=== PATIENT | female | born 1970 | race Caucasian/White ===

== ENCOUNTER 2017-05-14 17:26 | Emergency (ER) | payer SELFPAY ==
[2017-05-14 17:31] VITALS: BP 121/69
[2017-05-14] MEDS ORDERED: CIPROFLOXACIN HCL/DEXAMETH OTIC DROP 7.5 ML AS ONE (17:49)
--- NOTE | 2017-05-14 17:50 | ER Document Report ---
HPI - HPI Patient complains to provider of: Left ear pain Onset: Last week Onset/Duration: Worse Quality of pain: Sharp Pain Level: 5 Context: Patient presents complaining of left ear pain for the past week. Patient states pain worsened 3 days ago and she noticed drainage from her left ear. Patient denies any known fever. Patient reports previous history of ear problems in the past although has never followed up with ear nose and throat doctor. Associated Symptoms: Earache. denies: Fever Exacerbated by: Denies Relieved by: Denies Similar symptoms previously: Yes Recently seen / treated by doctor: No - ROS ROS below otherwise negative: Yes Systems Reviewed and Negative: Yes All other systems reviewed and negative - EENT EENT: REPORTS: Ear Pain - NEURO Neurology: DENIES: Headache, Weakness - GASTROINTESTINAL Gastrointestinal: DENIES: Nausea, Patient vomiting - REPRODUCTIVE Reproductive: DENIES: : - MUSCULOSKELETAL Musculoskeletal: DENIES: Neck Pain - DERM Skin Color: Normal Skin Problems: None Past Medical History - General Information source: Patient - Social History Smoking Status: Current Every Day Smoker Frequency of alcohol use: None Drug Abuse: Marijuana Occupation: Housekeeping Family History: DM, Hyperlipidemia EENT Medical History: Reports: Eyes - Macular degeneration Renal/ Medical History: Denies: Hx Peritoneal Dialysis Past Surgical History: Reports: Hx Tubal Ligation - Immunizations Hx Diphtheria, Pertussis, Tetanus Vaccination: No Vertical Provider Document - CONSTITUTIONAL Agree With Documented VS: Yes Exam Limitations: No Limitations General Appearance: WD/WN, No Apparent Distress - INFECTION CONTROL TRAVEL OUTSIDE OF THE [place] IN LAST 30 DAYS: No - HEENT HEENT: Atraumatic, Normocephalic. negative: Pharyngeal Exudate, Pharyngeal Tenderness, Pharyngeal Erythema, Tympanic Membrane Red, Tympanic Membrane Bulging Notes: Tenderness with movement of left helix, patient with swelling in drainage to left external auditory canal. No mastoid tenderness or swelling. Left TM unable to be fully visualized - NECK Neck: Normal Inspection, Supple. negative: Lymphadenopathy-Left, Lymphadenopathy-Right - RESPIRATORY Respiratory: Breath Sounds Normal, No Respiratory Distress O2 Sat by Pulse Oximetry: 97 - CARDIOVASCULAR Cardiovascular: Regular Rate, Regular Rhythm - BACK Back: Normal Inspection - MUSCULOSKELETAL/EXTREMETIES Musculoskeletal/Extremeties: MAEW - NEURO Level of Consciousness: Awake, Alert, Appropriate Motor/Sensory: No Motor Deficit - DERM Integumentary: Warm, Dry, No Rash Course - Re-evaluation Re-evalutation: 05/14/17 18:23 Ear wick placed without difficulty and drops administered in the emergency department. - Vital Signs Vital signs: Temp Pulse Resp BP Pulse Ox 99.5 F 103 H 16 121/69 97 05/14/17 17:29 05/14/17 17:29 05/14/17 17:29 05/14/17 17:29 05/14/17 17:29 Discharge - Discharge Clinical Impression: Otitis externa Qualifiers: Otitis externa type: unspecified type Chronicity: unspecified Laterality: left Qualified Code(s): H60.92 - Unspecified otitis externa, left ear Condition: Stable Disposition: HOME, SELF-CARE Instructions: Use of Ear Drops ([facility]), Using Ear Drops with a Wick ([facility]), Oral Narcotic Medication ([facility]), Otitis Externa ([facility]) Additional Instructions: Return immediately for any new or worsening symptoms Followup with your primary care provider, call tomorrow to make a followup appointment Follow-up with an ear nose and throat doctor for further evaluation, call Wednesday for an appointment Ciprodex drops, instill 4 drops to left ear canal twice a day for 7 days. Referrals: [facility] [Provider Group] - Follow up as needed
[2017-05-14] MEDS ORDERED: HYDROCODONE/ACETAMINOPHEN 5-325 MG 6 TAB/DSPK PO PRN (17:52)
== END 2017-05-14 18:25 | disposition home or self-care (01) ==
LOC: ER 17:26
DX: H60.92 Unspecified otitis externa, left ear (principal); H92.02 Otalgia, left ear; F17.200 Nicotine dependence, unspecified, uncomplicated
CPT/HCPCS: 99282; J3490

== ENCOUNTER 2018-01-15 13:13 | Emergency (ER) | payer SELFPAY ==
[2018-01-15] MEDS ORDERED: ASPIRIN 81 MG TABLET, CHEWABLE PO ONE (14:21)
--- NOTE | 2018-01-15 14:22 | ER Document Report ---
ED Medical Screen (RME) - General Chief Complaint: Chest Pain Stated Complaint: CHEST PAIN Time Seen by Provider: 01/15/18 14:20 Notes: RAPID MEDICAL EVALUATION DISCLOSURE I have seen this patient as part of a Rapid Medical Evaluation and, if applicable, placed any initially appropriate orders. The patient will be seen and fully evaluated, including a full history and physical exam, by a provider ( in Main ED or Fast Track) when a room becomes available. 47-year-old female here with complaints of midsternal nonradiating chest pain shortness of breath ongoing since last night. The chest pain is worse with exertion. The chest pain is still present with rest however she cannot tell me if it improves. She also reports that she has not eaten much in the last 3 weeks "because I have an eating disorder". She has not tried anything for the symptoms except smoking marijuana which she last consumed 4 days ago. TRAVEL OUTSIDE OF THE [place] IN LAST 30 DAYS: No - Related Data Allergies/Adverse Reactions: No Known Allergies Allergy (Verified 01/15/18 13:15) Home Medications: no daily medications Past Medical History Renal/ Medical History: Denies: Hx Peritoneal Dialysis Past Surgical History: Reports: Hx Tubal Ligation - Immunizations Hx Diphtheria, Pertussis, Tetanus Vaccination: No Physical Exam - Vital signs Vitals: Temp Pulse Resp BP Pulse Ox 99.4 F 100 18 149/71 H 99 01/15/18 13:29 01/15/18 13:29 01/15/18 13:01/15/18 13:29 01/15/18 13:29 Course - Vital Signs Vital signs: Temp Pulse Resp BP Pulse Ox 99.4 F 100 18 149/71 H 99 01/15/18 13:29 01/15/18 13:29 01/15/18 13:29 01/15/18 13:29 01/15/18 13:29
[2018-01-15 14:58] LABS: ABSOLUTE LYMPHOCYTES (AUTO) 1.5 10^3/uL (0.5-4.7); ABSOLUTE MONOCYTES (AUTO) 0.6 10^3/uL (0.1-1.4); ABSOLUTE NEUT (AUTO) 6.8 10^3/uL (1.7-8.2); BASOPHILS % (AUTO) 0.3 % (0-2); EOSINOPHILS % (AUTO) 0.6 % (0-6); HEMATOCRIT 45.3 % (36.0-47.0); HEMOGLOBIN 15.2 g/dL (12.0-15.5); LYMPHOCYTES % (AUTO) 16.7 % (13-45); MEAN CORPUSCULAR HEMOGLOBIN 28.8 pg (27.0-33.4); MEAN CORPUSCULAR HGB CONC 33.5 g/dL (32.0-36.0); MEAN CORPUSCULAR VOLUME 86 fl (80-97); MONOCYTES % (AUTO) 6.4 % (3-13); PLATELET COUNT 335 10^3/uL (150-450); RED BLOOD COUNT 5.27 10^6/uL (3.72-5.28); RED CELL DISTRIBUTION WIDTH 14.3 % (11.5-14.0); TOTAL CELLS COUNTED % (AUTO) 100 %
--- NOTE | 2018-01-15 15:04 | RADIOLOGY REPORT (SQ) ---
EXAM DESCRIPTION: CHEST 2 VIEWS COMPLETED DATE/TIME: 01/15/2018 2:55 pm REASON FOR STUDY: CP SOB COMPARISON: None. EXAM PARAMETERS: NUMBER OF VIEWS: two views TECHNIQUE: Digital Frontal and Lateral radiographic views of the chest acquired. RADIATION DOSE: NA LIMITATIONS: none FINDINGS: LUNGS AND PLEURA: No acute infiltrates or effusions. Hyperinflation. The possibility of COPD cannot be excluded. MEDIASTINUM AND HILAR STRUCTURES: No masses or contour abnormalities. HEART AND VASCULAR STRUCTURES: The heart is normal. The pulmonary vasculature is normal. BONES: No acute findings. HARDWARE: None in the chest. OTHER: No other significant finding. IMPRESSION: COPD. OTHERWISE, NORMAL CHEST. TECHNICAL DOCUMENTATION: JOB ID: [id number] [id number] 2010 [employer]- All Rights Reserved Reading location - IP/workstation name: [email or web address]
[2018-01-15 15:24] LABS: ANION GAP 16 (5-19); BLOOD UREA NITROGEN 12 mg/dL (7-20); CALCIUM 10.8 mg/dL (8.4-10.2); CARBON DIOXIDE 28 mmol/L (22-30); CHLORIDE 102 mmol/L (98-107); GLUCOSE 157 mg/dL (75-110); POTASSIUM 4.5 mmol/L (3.6-5.0); SODIUM 146.2 mmol/L (137-145)
--- NOTE | 2018-01-15 15:52 | EKG REPORT ---
SEVERITY:- ABNORMAL ECG - SINUS RHYTHM RIGHT ATRIAL ABNORMALITY PROBABLE ANTEROSEPTAL INFARCT, OLD BORDERLINE T ABNORMALITIES, INFERIOR LEADS : Confirmed by: Shakeel oWoten MD 15-Jan-2018 15:52:25
[2018-01-15] MEDS ORDERED: NORMAL SALINE 1000 ML 1,000 ML IV PRN (17:00)
[2018-01-15] MEDS ORDERED: NORMAL SALINE 1000 ML 1,000 ML IV ONE (17:24)
[2018-01-15] MEDS ORDERED: HYDROXYZINE PAMOATE 25 MG CAPSULE PO ONE (17:25)
--- NOTE | 2018-01-15 18:23 | ER Document Report ---
HPI - HPI Pain Level: 3 Context: Patient is a 47-year-old female who presents emergency department the chief complaint of anxiety, stress, decreased p.o. intake. Patient states that she has had issues with eating disorder for about 5 years that she utilizes marijuana to stimulate an appetite. Patient states that however last evening she was fighting with her she started having an anxiety attack and is still bothering her today. She also admits to shortness of breath and chest pain. States that this is been constant since yesterday morning and is not alleviated with anything. She denies any associated dyspnea, orthopnea, cough. States that she did not take anything for it prior to arrival. She states that she feels that this is all related to her stress and she has had similar attacks in the past. States that her main concern is that she has an been eating or drinking. - REPRODUCTIVE Reproductive: DENIES: : - DERM Skin Color: Normal, Amber Past Medical History - Social History Smoking Status: Never Smoker Chew tobacco use (# tins/day): No Frequency of alcohol use: None Drug Abuse: Marijuana Family History: DM, Hyperlipidemia Patient has suicidal ideation: No Patient has homicidal ideation: No Renal/ Medical History: Denies: Hx Peritoneal Dialysis Past Surgical History: Reports: Hx Tubal Ligation - Immunizations Hx Diphtheria, Pertussis, Tetanus Vaccination: No Vertical Provider Document - CONSTITUTIONAL Agree With Documented VS: Yes Notes: PHYSICAL EXAM GENERAL: Alert, interacts well. HEAD: Normocephalic, atraumatic. EYES: Pupils equal, round, and reactive to light. Extraocular movements intact. ENT: Oral mucosa moist, tongue midline. NECK: Full range of motion. Supple. Trachea midline. LUNGS: Clear to auscultation bilaterally, no wheezes, rales, or rhonchi. No respiratory distress. HEART: Regular rate and rhythm. No murmurs, gallops, or rubs. ABDOMEN: Thin soft, nondistended, nontender. No guarding, rebound, or rigidity.. Bowel sounds present in all 4 quadrants. EXTREMITIES: Moves all 4 extremities spontaneously. No edema, radial and dorsalis pedis pulses 2/4 bilaterally. No cyanosis. NEUROLOGICAL: Alert and oriented x4. Normal speech. PSYCH: Normal affect, normal mood. SKIN: Warm, dry, normal turgor. No rashes or lesions noted. - INFECTION CONTROL TRAVEL OUTSIDE OF THE [place] IN LAST 30 DAYS: No Course - Re-evaluation Re-evalutation: Patient is a 47-year-old female seen and examined, no acute distress afebrile. Patient states that she clinically feels much better after IV fluids and chest pain resolved after p.o. dose of Vistaril. Patient is very well in appearance, vitals within normal limits. Low clinical suspicion for ACS given clinical history, exam, EKG without ST elevations or depressions, and negative initial troponin. HEART score less than or equal to 3. PE also seems unlikely given clinical history, absence of tachycardia or dyspnea. Well's score of 0. CXR without evidence of pneumothorax or pneumonia. No widened mediastinum. Aortic dissection also seems unlikely given history, symmetric pulses, CXR, and vitals. At this time will discharge with return precautions and follow-up recommendations. Verbal discharge instructions given a the bedside and opportunity for questions given. Medication warnings reviewed. Patient is in agreement with this plan and has verbalized understanding of return precautions and the need for primary care follow-up in the next 24-72 hours. - Vital Signs Vital signs: Temp Pulse Resp BP Pulse Ox 99.4 F 100 20 149/71 H 99 01/15/18 13:29 01/15/18 13:29 01/15/18 17:00 01/15/18 13:29 01/15/18 13:29 - Laboratory Result Diagrams: 01/15/18 14:35 01/15/18 14:35 Laboratory results interpreted by me: 01/15/18 01/15/18 14:35 14:35 RDW 14.3 H Sodium 146.2 H Glucose 157 H Calcium 10.8 H - Diagnostic Test Radiology reviewed: Image reviewed, Reports reviewed - EKG Interpretation by Hi EKG shows normal: Sinus rhythm Rate: Normal Rhythm: NSR When compared to previous EKG there are: No significant change Discharge - Discharge Clinical Impression: Anxiety, Dehydration Condition: Good Disposition: HOME, SELF-CARE Instructions: Anxiety ([facility]), Intravenous (IV) Fluids ([facility]) Prescriptions: Hydroxyzine Pamoate [Vistaril] 25 mg PO BID #10 capsule Referrals: [facility] [NO LOCAL MD] - Follow up in 1 week [facility] [Provider Group] - Follow up in 1 week (Primary care)
[2018-01-15 18:51] VITALS: BP 119/75
== END 2018-01-15 18:55 | disposition home or self-care (01) ==
LOC: ER 13:13
DX: F41.9 Anxiety disorder, unspecified (principal); E86.0 Dehydration; F50.9 Eating disorder, unspecified; F12.90 Cannabis use, unspecified, uncomplicated
CPT/HCPCS: 93005; 99285; 96360; 36415; 83735; 84100; 85025; 80048; 84484; 71046; 93010; J7030